=== PATIENT | male | born 1950 | race Caucasian/White ===

== ENCOUNTER → 2021-03-31 | Day surgery (SDC) | payer MEDICARE, OTHER ==
[~2021-03-31] VITALS: Ht 172.7 cm; Wt 93.4 kg
[~2021-03-31] MED LIST: ASPIRIN EC81 MG PO; ASPIRIN325 MG PO; FLOMAX0.4 MG PO; JANUVIA50 MG PO; LEVEMIR100 UNIT/1 SC; LIPITOR20 MG PO; METFORMIN HCL1000 MG PO; OXYCODONE-ACET1 EAC1 PO; PRINIVIL20 MG PO; SYNJARDY 12.5-1 EACH PO; TRULICITY0.75 MG/0. IJ; VENTOLIN HFA IN18 GM INH
[2021-03-31 12:27] LABS: HCT 46.1 % (42.0-52.0); HGB 15.2 g/dl (13.2-18.0); MCH 29.4 pg (25.0-31.0); MCV 89.2 fL (78.0-100.0); MPV 9.8 fL (6.0-9.5); RBC 5.17 M/uL (4.70-6.00); RDW 13.7 % (11.5-14.0); WBC 10.1 K/uL (4.0-10.5)
[2021-03-31 12:30] LABS: BUN/CREAT RATIO (CALC) 14.8 RATIO; CREATININE 0.81 mg/dL (0.67-1.17); POTASSIUM 4.8 mmol/L (3.5-5.1)
== END | disposition home or self-care (01) ==
LOC: FAS 11:19
PROVIDERS: Anesthesiology; Legal Medicine
DX: M65.332 Trigger finger, left middle finger (principal); E11.9 Type 2 diabetes mellitus without complications; Z79.4 Long term (current) use of insulin; I10 Essential (primary) hypertension; E78.5 Hyperlipidemia, unspecified; Z79.84 Long term (current) use of oral hypoglycemic drugs; J44.9 Chronic obstructive pulmonary disease, unspecified; F17.210 Nicotine dependence, cigarettes, uncomplicated
CPT/HCPCS: 36415; 80048; J0690; J2250; J2704; J2795; J7120